=== PATIENT | female | born 1980 | race Caucasian/White ===

== ENCOUNTER → 2017-09-26 14:34 | Outpatient (CLI) | payer MEDICARE, MEDICAID, SELFPAY ==
[2017-09-26 15:33] LABS: Lithium 0.3 mmol/L (0.6-1.2)
[2017-09-28 15:59] LABS: Valproic Acid (Depakene) Total < 12.5 mg/L (50.0-100.0)
== END ==
PROVIDERS: Family Provider Internal Medicine; PCP Internal Medicine; Visit Provider Psychiatry & Neurology Psychiatry
DX: F31.9 Bipolar disorder, unspecified (principal); F25.9 Schizoaffective disorder, unspecified
CPT/HCPCS: 36415; 80164; 80178

== ENCOUNTER → 2018-03-03 12:20 | Outpatient (CLI) | payer MEDICARE, MEDICAID, SELFPAY ==
[2018-03-03 14:10] LABS: Free T3, Triiodothyronine Free 2.65 pg/mL (2.77-5.27); Free T4, Direct Thyroxine 1.34 ng/dL (0.78-2.19)
[2018-03-03 14:23] LABS: Thyroid Stimulating Hormone 0.13 uIU/mL (0.47-4.68)
[2018-03-03 15:46] LABS: Appearance Urine UA SL CLOUDY; Bilirubin Urine UA NEGATIVE (NEGATIVE); Color Urine UA YELLOW; Glucose Urine UA NEGATIVE (Normal); Ketones Urine UA TRACE (NEGATIVE); Leukocyte Esterase Urine UA NEGATIVE (NEGATIVE); Nitrite Urine UA NEGATIVE (Negative); Occult Blood Urine UA 2+ (Negative); Protein Urine UA NEGATIVE (Negative); Specific Gravity Urine UA <=1.005 (1.000-1.035); Urobilinogen Urine UA 0.2 E.U./dL (0.2); pH Urine UA 6.5 (4.5-8.0)
[2018-03-03 15:57] LABS: Amorphous Sediment Urine 1+; Bacteria Urine Few (2-10); Culture Indicated Urine Cult Not Indicated; RBC Urine 0-1/HPF (0-5/HPF); Squamous Epithelial Cell Urine 10-30 /HPF; WBC Urine 1-5/HPF (0-5/HPF)
[2018-03-05 14:08] LABS: Anti Thyroglobulin Antibody < 1 IU/mL (< 2); Thyroid Peroxidase Antibodies < 1 IU/mL (< 9)
== END ==
PROVIDERS: Family Provider Psychiatry & Neurology Psychiatry; PCP Internal Medicine; Visit Provider Internal Medicine
DX: E05.90 Thyrotoxicosis, unspecified without thyrotoxic crisis or storm (principal); R30.0 Dysuria
CPT/HCPCS: 36415; 81001; 84439; 84443; 84481; 86376; 86800

== ENCOUNTER → 2018-07-01 14:28 | Outpatient (CLI) | payer MEDICARE, MEDICAID, SELFPAY ==
[2018-07-01 14:59] LABS: Add Manual Diff / Slide Review NO; Basophils Absolute Auto 100 /uL (0-100); Eosinophils Absolute Auto 200 /uL (0-450); Eosinophils Percent Auto 2.9 % (2-4); Hematocrit 42.4 % (36-46); Hemoglobin 14.6 g/dL (12.0-16.0); Lymphocytes Absolute Auto 2300 /uL (1100-4500); Mean Corpuscular HGB Conc 34.4 % (30-36); Mean Corpuscular Hemoglobin 31.6 PG (26-34); Monocytes Absolute Auto 600 /uL (0-900); Monocytes Percent Auto 8.1 % (3-14); Neutrophils Absolute Auto 4400 /uL (1500-7000); Platelet Count 280 X10^3/uL (150-400); Red Cell Distribution Width 13.1 % (11.6-14.8); White Blood Cell Count 7.5 X10^3/uL (4.5-11.0)
[2018-07-01 16:57] LABS: Alanine Aminotransferase 33 IU/L (9-52); Albumin 4.3 g/dL (3.5-5.0); Albumin Globulin Ratio 1.5 (1.0-2.8); Alkaline Phosphatase 82 U/L (38-126); Aspartate Aminotransferase 21 IU/L (14-36); Bilirubin Total 0.4 mg/dL (0.2-1.3); Bilirubin Unconjugated 0.1 mg/dL (0.0-1.1); Globulin 2.8 g/dL (1.7-4.1); HEMOLYSIS < 15 (0-50); Total Protein 7.1 g/dL (6.3-8.2)
[2018-07-01 16:57] LABS: Lithium 0.6 mmol/L (0.6-1.2)
[2018-07-01 17:20] LABS: Free T3, Triiodothyronine Free 3.51 pg/mL (2.77-5.27); Free T4, Direct Thyroxine 0.93 ng/dL (0.78-2.19)
[2018-07-01 17:33] LABS: Thyroid Stimulating Hormone 0.87 uIU/mL (0.47-4.68)
[2018-07-03 13:19] LABS: Valproic Acid (Depakene) Total 44.7 mg/L (50.0-100.0)
== END ==
PROVIDERS: Psychiatry & Neurology Psychiatry; Family Provider Psychiatry & Neurology Psychiatry; PCP Internal Medicine; Visit Provider Internal Medicine Endocrinology, Diabetes & Metabolism
DX: E05.90 Thyrotoxicosis, unspecified without thyrotoxic crisis or storm (principal); F25.9 Schizoaffective disorder, unspecified; F25.0 Schizoaffective disorder, bipolar type; Z51.81 Encounter for therapeutic drug level monitoring
CPT/HCPCS: 36415; 80076; 80164; 80178; 84439; 84443; 84481; 85025

== ENCOUNTER → 2018-08-04 13:49 | Outpatient (CLI) | payer MEDICARE, MEDICAID, SELFPAY ==
[2018-08-04 15:32] LABS: Lithium 0.7 mmol/L (0.6-1.2)
[2018-08-04 15:53] LABS: Free T4, Direct Thyroxine 0.73 ng/dL (0.78-2.19)
[2018-08-04 16:07] LABS: Thyroid Stimulating Hormone 0.35 uIU/mL (0.47-4.68)
== END ==
PROVIDERS: Family Provider Psychiatry & Neurology Psychiatry; PCP Internal Medicine; Visit Provider Internal Medicine Endocrinology, Diabetes & Metabolism
DX: E05.90 Thyrotoxicosis, unspecified without thyrotoxic crisis or storm (principal); F25.9 Schizoaffective disorder, unspecified
CPT/HCPCS: 36415; 80178; 84439; 84443

== ENCOUNTER → 2018-09-01 13:15 | Outpatient (CLI) | payer MEDICARE, MEDICAID, SELFPAY ==
[2018-09-01 15:39] LABS: Free T3, Triiodothyronine Free 3.04 pg/mL (2.77-5.27); Free T4, Direct Thyroxine 0.66 ng/dL (0.78-2.19)
[2018-09-01 15:53] LABS: Thyroid Stimulating Hormone 5.85 uIU/mL (0.47-4.68)
== END ==
PROVIDERS: Family Provider Psychiatry & Neurology Psychiatry; PCP Internal Medicine; Visit Provider Internal Medicine Endocrinology, Diabetes & Metabolism
DX: E05.90 Thyrotoxicosis, unspecified without thyrotoxic crisis or storm (principal)
CPT/HCPCS: 36415; 84439; 84443; 84481

== ENCOUNTER → 2019-07-05 11:11 | Outpatient (CLI) | payer MEDICARE, MEDICAID, SELFPAY ==
[2019-07-05 13:16] LABS: BUN Creatinine Ratio 23.2 (6-22); Blood Urea Nitrogen 16 mg/dL (7-17); Calcium 9.7 mg/dL (8.4-10.2); Carbon Dioxide 19 mmol/L (22-32); Chloride 111 mmol/L (98-107); Estimated Glomerular Filt Rate > 60.0 mL/min (>60); Glucose 94 mg/dL (70-100); HEMOLYSIS < 15 (0-50); Lithium 0.3 mmol/L (0.6-1.2); Sodium 139 mmol/L (137-145)
[2019-07-05 13:29] LABS: Free T4, Direct Thyroxine 0.84 ng/dL (0.78-2.19)
[2019-07-05 13:43] LABS: Thyroid Stimulating Hormone 2.32 uIU/mL (0.47-4.68)
== END ==
PROVIDERS: Family Provider Psychiatry & Neurology Psychiatry; PCP Internal Medicine; Referring Provider Psychiatry & Neurology Psychiatry; Visit Provider Psychiatry & Neurology Psychiatry
DX: E05.90 Thyrotoxicosis, unspecified without thyrotoxic crisis or storm (principal); F25.0 Schizoaffective disorder, bipolar type
CPT/HCPCS: 36415; 80048; 80178; 84439; 84443

== ENCOUNTER 2021-03-10 11:54 | Emergency (ER) | payer MEDICARE, MEDICAID, SELFPAY ==
[2021-03-10 12:10] VITALS: BP 156/88; PULSE 96; RESP 20; TEMP 36.8; O2SAT 96; BMI 39.9
--- NOTE | 2021-03-10 13:53 | ED_ITS ---
HPI - Wound/Laceration General Chief Complaint: Wound/Laceration Stated Complaint: RT FINGER LACERATION Time Seen by Provider: 03/10/21 13:47 Source: patient Mode of arrival: Ambulatory Limitations: no limitations History of Present Illness HPI narrative: The patient injured her right middle finger about 11:00 a.m. this morning. She reached in a mauro bag. She had a razor in the bag, apparently with the safety cover off. She lacerated the tip of her finger from the blade. Her finger is bandaged. Active bleeding has ceased. Related Data Home Medications Medication Instructions Recorded Confirmed gabapentin 100 mg capsule 100 mg PO BID cap 05/19/19 06/28/19 methimazole 5 mg tablet 2.5 mg PO BEDTIME tab 05/19/19 06/28/19 quetiapine 400 mg tablet,extended 600 mg PO BEDTIME tab 07/30/19 release 24 hr Previous Rx's Medication Instructions Recorded lorazepam 0.5 mg tablet 0.5 mg PO BID PRN #60 tab 04/26/19 lithium carbonate 300 mg capsule See Rx Instructions .ROUTE 07/26/19 .COMPLEX #90 cap Allergies Allergy/AdvReac Type Severity Reaction Status Date / Time No Known Drug Allergies Allergy Verified 03/10/21 12:10 Review of Systems Constitutional Constitutional: Denies chills and Denies fever(s) Comments: No recent illness Musculoskeletal Musculoskeletal: Reports as per HPI and Denies numbness Integumentary/Breasts Comments: Right 3rd finger laceration. Neurologic Neurologic: Denies numbness Patient History Medical History Acne Bipolar disorder Schizoaffective disorder Vitiligo Surgical History History of third molar tooth extraction (2003) Family History Brother Schizo-affective schizophrenia Depression Grandmother Bipolar 1 disorder Father Alzheimer's disease Social History Smoking Status: Former smoker Smoking Status: Former smoker Substance Use Type: does not use Exam Initial Vital Signs Initial Vital Signs: Vital Signs Temperature 98.2 F 03/10/21 12:10 Pulse Rate 96 H 03/10/21 12:10 Respiratory Rate 20 03/10/21 12:10 Blood Pressure 156/88 H 03/10/21 12:10 Pulse Oximetry 96 03/10/21 12:10 Const General: cooperative and healthy appearing [facility] Head: normocephalic and atraumatic Skin Other: Near complete 1.5 cm avulsion laceration to the epidermal layer only at the tip of the left 3rd finger. The nail is not involved. There is no foreign body or active bleeding. Neuro General: patient alert, patient awake, patient oriented x3 and no focal motor deficits Sensory Exam: no sensory deficits noted Procedures Laceration Repair Laceration 1: Side (If applicable): right Size (cm): 1.5 Description: flap Depth: simple, single layer Pre-repair: wound explored and irrigated extensively Skin layer closed with: dermabond Course Course Course Narrative: After wound management, the site was covered with a bandage by the patient's nurse. The patient tolerated procedure without difficulty. Orders Ordered: Discontinued Medications Diphtheria/Tetanus/Acell Pertussis (Tet,Diph,Pertuss(Acell),Vac/Pf 0.5 Ml Syringe) 0.5 ml IM .ONCE ONE Stop: 03/10/21 12:21 Last Admin: 03/10/21 14:03 Dose: 0.5 ml Documented by: HOMERO Vital Signs Vital signs: Vital Signs - 8 hr 03/10/21 12:10 Temperature 98.2 F Pulse Rate 96 H Respiratory Rate 20 Blood Pressure 156/88 H Pulse Oximetry 96 Discharge Plan Departure Patient Disposition: Home Clinical Impression: Laceration of right middle finger w/o foreign body w/o damage to nail Instructions: DI for Minor Laceration Activity Restrictions/Additional Instructions: Keep the bandage on for 48 hours. After the initial bandage comes off, cover the site only if you are physically active. Expect the glue to peel off in 5-7 days. Return here as needed. Prescriptions: No Action gabapentin 100 mg capsule 100 mg PO BID 0RF methimazole 5 mg tablet 2.5 mg PO BEDTIME 0RF lorazepam 0.5 mg tablet 0.5 mg PO BID PRN (Reason: anxiety) Qty: 60 1RF lithium carbonate 300 mg capsule See Rx Instructions .ROUTE .COMPLEX Qty: 90 2RF Rx Instructions: Take 1 capsule (300 mg) in the morning and two capsules (600 mg) at bedtime. quetiapine 400 mg tablet extended release 24 hr 600 mg PO BEDTIME 0RF Rx Instructions: increased by Dr. Jalloh per note 06/28/19 Referrals: Alka Weller ARNP [Primary Care Provider] -
[2021-03-10] MEDS: TET,DIPH,PERTUSS(ACELL),VAC/PF 0.5 ML SYRINGE IM (14:03)
== END 2021-03-10 15:09 | disposition home or self-care (01) ==
PROVIDERS: Emergency Provider Emergency Medicine; Family Provider Psychiatry & Neurology Psychiatry; PCP Internal Medicine
DX: S61.212A Laceration without foreign body of right middle finger without damage to nail, initial encounter (principal)
CPT/HCPCS: 90471; 99282; 99283; 90715